=== PATIENT | female | born 1990 | race Caucasian/White ===

== ENCOUNTER 2018-04-13 15:56 | Emergency (ER) | payer BC ==
[~2018-04-13] VITALS: Ht 157.5 cm; Wt 63.0 kg
[~2018-04-13 15:56] MED LIST: ADVAIR 500/501 EA INH; ALBUTEROL SULF8.5 GM INH; CORTISPORIN EAR10 ML LEFT EAR; DOXYCYCLINE HY100 MG PO; LOESTRIN1 EAC1 PO
[2018-04-13] MEDS ORDERED: TETRACAINE HCL 0.5% OPTH SOLN 4 ML BTL ONE (16:07)
[2018-04-13] MEDS ORDERED: FLUORESCEIN SOD(OPTH) 1 MG STRP OP ONE (16:15)
[2018-04-13] MEDS ORDERED: PROPARACAINE HCL 0.5% OP SOLN 15 ML BTL OP ONE (16:15)
[2018-04-13 16:41] VITALS: BP 113/79
== END 2018-04-13 16:55 | disposition home or self-care (01) ==
LOC: ER 15:56
DX: H57.12 Ocular pain, left eye (principal); S05.02XA Injury of conjunctiva and corneal abrasion without foreign body, left eye, initial encounter; R05 Cough; J02.9 Acute pharyngitis, unspecified
CPT/HCPCS: 99283

== ENCOUNTER 2018-09-26 01:21 | Emergency (ER) | payer BC, OTHER ==
[~2018-09-26] VITALS: Ht 157.5 cm; Wt 63.0 kg
--- OUTSIDE RECORDS SUMMARY | 2018-09-26 01:24 | XMS REPORT | Continuity of Care Document ---
Author Author Jeremias sorensen [facility] Interface Address Unknown Phone Unavailable Problems Problem Status Onset Date Classification Date Reported Comments Source Discharge Diagnosis: Cough 10/18/2017 10/21/2017 [facility] Discharge Diagnosis: Acute viral syndrome 10/18/2017 10/21/2017 [facility] 23 WEEKS , WEAKNESS, VOMITING Active 10/18/2017 [facility] Discharge Diagnosis: Rash 08/31/2017 09/03/2017 [facility] 16 WKS PREG;PAIN Active 08/31/2017 [facility] Medications Medication Details Route Status Patient Instructions Ordering Provider Order Date Source {21 (Methylprednisolone 4 MG Oral Tablet [Medrol]) } Pack [Medrol Dosepak] See Instructions, PO, Take by mouth as directed on label., # 1 Pack, 0 Refill(s) Active 10/19/2017 [facility] methylPREDNISolone SODium SUCCinate 125 mg, 2 mL, Route: IVP, Drug form: INJ, ONCE, Dosing Weight 70.909, kg, Priority: STAT, Start date: 10/18/17 19:24:00 CAREER TRANSITION SPECIALIST, Stop date: 10/18/17 19:24:00 CSTNotes: (Same as:Solu-MEDROL, A-Methapred) Inactive 10/19/2017 [facility] Albuterol 0.83 MG/ML Inhalant Solution 2.49 mg, 3 mL, Route: NEB, Drug form: SOLN, ONCE, Dosing Weight 70.909, kg, Priority: STAT, Start date: 10/18/17 16:25:00 CAREER TRANSITION SPECIALIST, Stop date: 10/18/17 16:25:00 CSTNotes: SEE RT DOCUMENTATION (Same as: Proventil) Inactive 10/18/2017 [facility] Saline Flush 0.9% 10 mL, Route: IVP, Drug Form: INJ, Dosing Weight 70.909, kg, PRN, PRN Line Flush, Start date: 10/18/17 16:25:00 CAREER TRANSITION SPECIALIST, Duration: 30 day, Stop date: 11/17/17 16:24:00 CSTNotes: Same as: BD Posiflush Sterile Inactive 10/18/2017 [facility] Sodium Chloride 0.9% (Bolus) IV 1,000 mL, 1000 ml/hr, Infuse Over: 1 hr, Route: IV, 1,000, Drug form: INJ, ONCE, Priority: STAT, Dosing Weight 70.909 kg, Start date: 10/18/17 16:25:00 CAREER TRANSITION SPECIALIST, Stop date: 10/18/17 16:25:00 CAREER TRANSITION SPECIALIST Inactive 10/18/2017 [facility] Clobetasol Propionate 0.5 MG/ML Topical Cream 1 appl, TOP, BID, X 14 day, # 15 gm, 0 Refill(s) Active 08/31/2017 [facility] Diphenhydramine 25 mg, 0.5 mL, Route: IVP, Drug form: INJ, ONCE, Dosing Weight 68.955, kg, Priority: STAT, Start date: 08/31/17 17:24:00 CDT, Stop date: 08/31/17 17:24:00 CDTNotes: (Same as: Benadryl) Inactive 08/31/2017 [facility] Diphenhydramine 25 mg, 0.5 mL, Route: IVP, Drug form: INJ, ONCE, Dosing Weight 68.955, kg, Priority: STAT, Start date: 08/31/17 15:34:00 CDT, Stop date: 08/31/17 15:34:00 CDTNotes: (Same as: Benadryl) Inactive 08/31/2017 [facility] Saline Flush 0.9% 10 mL, Route: IVP, Drug Form: INJ, Dosing Weight 68.955, kg, PRN, PRN Line Flush, Start date: 08/31/17 14:53:00 CDT, Duration: 30 day, Stop date: 09/30/17 13:52:00 CSTNotes: Same as: BD Posiflush Sterile Inactive 08/31/2017 [facility] Sodium Chloride 0.9% (Bolus) IV 1,000 mL, 1,000 ml/hr, Infuse Over: 1 hr, Route: IV, 1,000, Drug form: INJ, ONCE, Priority: STAT, Dosing Weight 68.955 kg, Start date: 08/31/17 14:53:00 CDT, Duration: 1 doses or times, Stop date: 08/31/17 14:53:00 CDT Inactive 08/31/2017 [facility] Allergies, Adverse Reactions, Alerts Substance Category Reaction Severity Reaction type Status Date Reported Comments Source Food Nuts Assertion Drug allergy Active [facility] sulfa drugs Assertion Drug allergy Active [facility] Immunizations Immunization Date Given Site Status Last Updated Comments Source Results Order Name Results Value Reference Range Date Interpretation Comments Source URINE AND STOOL UA Urobilinogen <=1.0 mg/dL 0.1 - 1.0 10/18/2017 [facility] URINE AND STOOL UA Spec Grav 1.017 <=1.030 10/18/2017 [facility] URINE AND STOOL UA Ketones Negative mg/dL Negative mg/dL 10/18/2017 [facility] URINE AND STOOL UA pH 6.5 5.0 - 8.0 10/18/2017 [facility] URINE AND STOOL UA Protein Negative mg/dL Negative mg/dL 10/18/2017 [facility] URINE AND STOOL UA WBC 3 /HPF 0 - 5 10/18/2017 [facility] URINE AND STOOL UA Sq Epi Many /LPF Few /LPF 10/18/2017 [facility] URINE AND STOOL UA Bili Negative *NA* (10/18/17 5:15 PM) Negative 10/18/2017 [facility] URINE AND STOOL UA Mucus Few /LPF None Seen /LPF 10/18/2017 [facility] URINE AND STOOL UA RBC 1 /HPF 0 - 2 10/18/2017 [facility] URINE AND STOOL UA Leuk Est Small *ABN* (10/18/17 5:15 PM) Negative 10/18/2017 [facility] URINE AND STOOL UA Nitrite Negative (10/18/17 5:15 PM) Negative 10/18/2017 [facility] URINE AND STOOL UA Blood Negative (10/18/17 5:15 PM) Negative 10/18/2017 [facility] URINE AND STOOL UA Glucose Negative mg/dL Negative mg/dL 10/18/2017 [facility] URINE AND STOOL UA Turbidity Clear (10/18/17 5:15 PM) Clear 10/18/2017 [facility] URINE AND STOOL UA Color Yellow *NA* (10/18/17 5:15 PM) Yellow 10/18/2017 [facility] CHEM PANEL eGFR 130 mL/min/1.73m2 10/18/2017 Result Comment: The eGFR is calculated using the CKD-EPI formula. In most young, healthy individuals the eGFR will be >90 mL/min/1.73m2. The eGFR declines with age. An eGFR of 60-89 may be normal in some populations, particularly the elderly, for whom the CKD-EPI formula has not been extensively validated. Use of the eGFR is not recommended in the following populations: Individuals with unstable creatinine concentrations, including patients and those with serious co-morbid conditions. Patients with extremes in muscle mass or diet. The data above are obtained from the National Kidney Disease Education Program (NKDEP) which additionally recommends that when the eGFR is used in patients with extremes of body mass index for purposes of drug dosing, the eGFR should be multiplied by the estimated BMI. [facility] CHEM PANEL Creatinine Lvl 0.57 mg/dL 0.50 - 1.40 10/18/2017 [facility] CHEM PANEL Sodium Lvl 138 meq/L 135 - 145 10/18/2017 [facility] CHEM PANEL Potassium Lvl 4.1 meq/L 3.5 - 5.1 10/18/2017 [facility] CHEM PANEL Chloride Lvl 104 meq/L 95 - 109 10/18/2017 [facility] CHEM PANEL CO2 26 meq/L 24 - 32 10/18/2017 [facility] CHEM PANEL Glucose Lvl 87 mg/dL 70 - 99 10/18/2017 [facility] CHEM PANEL BUN 9 mg/dL 7 - 22 10/18/2017 [facility] CHEM PANEL Albumin Lvl 3.0 g/dL 3.5 - 5.0 10/18/2017 [facility] CHEM PANEL Calcium Lvl 8.7 mg/dL 8.5 - 10.5 10/18/2017 [facility] CHEM PANEL Total Protein 7.3 g/dL 6.4 - 8.4 10/18/2017 [facility] CHEM PANEL Bili Total 0.3 mg/dL 0.2 - 1.3 10/18/2017 [facility] CHEM PANEL AST 13 unit/L 0 - 37 10/18/2017 [facility] CHEM PANEL Alk Phos 84 unit/L 39 - 136 10/18/2017 [facility] CHEM PANEL ALT 15 unit/L 0 - 65 10/18/2017 [facility] CHEM PANEL A/G Ratio 0.7 0.7 - 1.6 10/18/2017 [facility] CHEM PANEL B/C Ratio 16 6 - 25 10/18/2017 [facility] CHEM PANEL AGAP 12.1 meq/L 10.0 - 20.0 10/18/2017 [facility] CHEM PANEL Globulin 4.3 g/dL 2.7 - 4.2 10/18/2017 [facility] HEMATOLOGY Hct 31.8 % 36.0 - 48.0 10/18/2017 [facility] HEMATOLOGY MCV 83.2 fL 80.0 - 98.0 10/18/2017 [facility] HEMATOLOGY MCH 27.7 pg 27.0 - 31.0 10/18/2017 [facility] HEMATOLOGY Platelet 290 K/CMM 133 - 450 10/18/2017 [facility] HEMATOLOGY RDW 13.3 % 11.5 - 14.5 10/18/2017 [facility] HEMATOLOGY MCHC 33.3 g/dL 32.0 - 36.0 10/18/2017 [facility] HEMATOLOGY MPV 7.8 fL 7.4 - 10.4 10/18/2017 [facility] HEMATOLOGY Hgb 10.6 g/dL 12.0 - 16.0 10/18/2017 [facility] HEMATOLOGY RBC 3.82 M/CMM 4.20 - 5.40 10/18/2017 [facility] HEMATOLOGY WBC 15.1 K/CMM 3.7 - 10.4 10/18/2017 [facility] HEMATOLOGY Monocytes # 0.9 K/CMM 0.0 - 0.8 10/18/2017 [facility] HEMATOLOGY Eosinophils # 2.1 K/CMM 0.0 - 0.5 10/18/2017 [facility] HEMATOLOGY Lymphocytes # 2.5 K/CMM 1.0 - 5.5 10/18/2017 [facility] HEMATOLOGY Segs 62.8 % 45.0 - 75.0 10/18/2017 [facility] HEMATOLOGY Lymphocytes 16.9 % 20.0 - 40.0 10/18/2017 [facility] HEMATOLOGY Eosinophils 13.8 % 0.0 - 4.0 10/18/2017 [facility] HEMATOLOGY Monocytes 6.2 % 2.0 - 12.0 10/18/2017 [facility] HEMATOLOGY Segs-Bands # 9.5 K/CMM 1.5 - 8.1 10/18/2017 [facility] HEMATOLOGY Basophils 0.3 % 0.0 - 1.0 10/18/2017 [facility] VIRAL - SEROLOGY Influ A Negative (10/18/17 4:34 PM) Negative 10/18/2017 [facility] VIRAL - SEROLOGY Influ B Negative (10/18/17 4:34 PM) Negative 10/18/2017 [facility] Chest 2 views DX Chest 2 views DX Chest 2 views DX CLINICAL HISTORY: - cough/wheezing; preg; shield COMPARISON: none FINDINGS: SUPPORT DEVICES: none LUNGS: Lungs are reasonably well inflated. No consolidation or any significant effusion. No pneumothorax is evident. CARDIOVASCULAR: Cardiac silhouette size is normal. Pulmonary vasculature is within normal limits. MEDIASTINUM/JELANI: Trachea is midline. No contour abnormality is noted. OSSEOUS STRUCTURES: No acute bony abnormality is noted. SOFT TISSUES: No significant soft tissue abnormality is noted. IMPRESSION: No acute abnormality is noted. SL: MELO 10/18/2017 - - Read by: Geoffrey Roldan MD Dictated Date/time: 10/18/17 16:50 Electronically Signed by: Geoffrey Roldan MD 10/18/17 16:51 FINAL REPORT [facility] BLOOD BANK RESULTS ABO/Rh O POS 08/31/2017 [facility] CHEM PANEL eGFR 129 mL/min/1.73m2 08/31/2017 Result Comment: The eGFR is calculated using the CKD-EPI formula. In most young, healthy individuals the eGFR will be >90 mL/min/1.73m2. The eGFR declines with age. An eGFR of 60-89 may be normal in some populations, particularly the elderly, for whom the CKD-EPI formula has not been extensively validated. Use of the eGFR is not recommended in the following populations: Individuals with unstable creatinine concentrations, including patients and those with serious co-morbid conditions. Patients with extremes in muscle mass or diet. The data above are obtained from the National Kidney Disease Education Program (NKDEP) which additionally recommends that when the eGFR is used in patients with extremes of body mass index for purposes of drug dosing, the eGFR should be multiplied by the estimated BMI. [facility] CHEM PANEL Bili Total 0.2 mg/dL 0.2 - 1.3 08/31/2017 [facility] CHEM PANEL Alk Phos 77 unit/L 39 - 136 08/31/2017 [facility] CHEM PANEL CO2 24 meq/L 24 - 32 08/31/2017 [facility] CHEM PANEL Calcium Lvl 9.0 mg/dL 8.5 - 10.5 08/31/2017 [facility] CHEM PANEL Total Protein 7.5 g/dL 6.4 - 8.4 08/31/2017 [facility] CHEM PANEL Albumin Lvl 3.3 g/dL 3.5 - 5.0 08/31/2017 [facility] CHEM PANEL ALT 16 unit/L 0 - 65 08/31/2017 [facility] CHEM PANEL AST 14 unit/L 0 - 37 08/31/2017 [facility] CHEM PANEL Creatinine Lvl 0.57 mg/dL 0.50 - 1.40 08/31/2017 [facility] CHEM PANEL Potassium Lvl 3.6 meq/L 3.5 - 5.1 08/31/2017 [facility] CHEM PANEL Chloride Lvl 104 meq/L 95 - 109 08/31/2017 [facility] CHEM PANEL BUN 11 mg/dL 7 - 22 08/31/2017 [facility] CHEM PANEL Glucose Lvl 80 mg/dL 70 - 99 08/31/2017 [facility] CHEM PANEL Sodium Lvl 134 meq/L 135 - 145 08/31/2017 [facility] CHEM PANEL Globulin 4.2 g/dL 2.7 - 4.2 08/31/2017 [facility] CHEM PANEL B/C Ratio 19 6 - 25 08/31/2017 [facility] CHEM PANEL AGAP 9.6 meq/L 10.0 - 20.0 08/31/2017 [facility] CHEM PANEL A/G Ratio 0.8 0.7 - 1.6 08/31/2017 [facility] [place] [address] mIU/mL 08/31/2017 [facility] HEMATOLOGY Platelet 354 K/CMM 133 - 450 08/31/2017 [facility] HEMATOLOGY RDW 14.3 % 11.5 - 14.5 08/31/2017 [facility] HEMATOLOGY MCHC 33.5 g/dL 32.0 - 36.0 08/31/2017 [facility] HEMATOLOGY Hct 33.9 % 36.0 - 48.0 08/31/2017 [facility] HEMATOLOGY Hgb 11.3 g/dL 12.0 - 16.0 08/31/2017 [facility] HEMATOLOGY MPV 7.6 fL 7.4 - 10.4 08/31/2017 [facility] HEMATOLOGY MCV 81.7 fL 80.0 - 98.0 08/31/2017 [facility] HEMATOLOGY MCH 27.4 pg 27.0 - 31.0 08/31/2017 [facility] HEMATOLOGY RBC 4.14 M/CMM 4.20 - 5.40 08/31/2017 [facility] HEMATOLOGY WBC 11.8 K/CMM 3.7 - 10.4 08/31/2017 [facility] HEMATOLOGY Eosinophils # 0.2 K/CMM 0.0 - 0.5 08/31/2017 [facility] HEMATOLOGY Basophils 0.3 % 0.0 - 1.0 08/31/2017 [facility] HEMATOLOGY Segs-Bands # 7.6 K/CMM 1.5 - 8.1 08/31/2017 [facility] HEMATOLOGY Lymphocytes # 3.2 K/CMM 1.0 - 5.5 08/31/2017 [facility] HEMATOLOGY Monocytes # 0.6 K/CMM 0.0 - 0.8 08/31/2017 [facility] HEMATOLOGY Eosinophils 1.9 % 0.0 - 4.0 08/31/2017 [facility] HEMATOLOGY Lymphocytes 27.2 % 20.0 - 40.0 08/31/2017 [facility] HEMATOLOGY Monocytes 5.5 % 2.0 - 12.0 08/31/2017 [facility] HEMATOLOGY Segs 65.1 % 45.0 - 75.0 08/31/2017 [facility] URINE AND STOOL UA Urobilinogen <=1.0 mg/dL 0.1 - 1.0 08/31/2017 [facility] URINE AND STOOL UA Nitrite Negative (08/31/17 4:03 PM) Negative 08/31/2017 [facility] URINE AND STOOL UA Blood Negative (08/31/17 4:03 PM) Negative 08/31/2017 [facility] URINE AND STOOL UA WBC null 0 - 5 08/31/2017 [facility] URINE AND STOOL UA Sq Epi Moderate /LPF Few /LPF 08/31/2017 [facility] URINE AND STOOL UA Leuk Est Negative (08/31/17 4:03 PM) Negative 08/31/2017 [facility] URINE AND STOOL UA RBC 2 /HPF 0 - 2 08/31/2017 [facility] URINE AND STOOL UA Mucus Few /LPF None Seen /LPF 08/31/2017 [facility] URINE AND STOOL UA Turbidity Clear (08/31/17 4:03 PM) Clear 08/31/2017 [facility] URINE AND STOOL UA Spec Grav 1.019 <=1.030 08/31/2017 [facility] URINE AND STOOL UA Bili Negative *NA* (08/31/17 4:03 PM) Negative 08/31/2017 [facility] URINE AND STOOL UA Color Yellow *NA* (08/31/17 4:03 PM) Yellow 08/31/2017 [facility] URINE AND STOOL UA pH 6.0 5.0 - 8.0 08/31/2017 [facility] URINE AND STOOL UA Protein Negative mg/dL Negative mg/dL 08/31/2017 [facility] URINE AND STOOL UA Ketones Negative mg/dL Negative mg/dL 08/31/2017 [facility] URINE AND STOOL UA Glucose Negative mg/dL Negative mg/dL 08/31/2017 [facility] complete US complete US Study: complete US 08/31/2017 2:53 PM CDT Ordering Physician: Willy Nicole Clinical Indication: Vaginal Bleeding - 16 weeks; lower abd pain. Comparison: None TECHNIQUE: Grayscale, color flow Doppler and duplex Doppler ultrasound with spectral waveform analysis of the pelvis is performed. Please see computer-generated obstetrical ultrasound report for complete details. A single living intrauterine gestation is present in variable position, with normal heart rate of 155 bpm. The placenta is posterior, grade 1, with no evidence for previa or abruption. Amniotic fluid index is normal, measuring 11.4 cm. The cervix is competent, measuring 3.8 cm in length. measurements and ratios are within normal limits. Gestational age by LMP of 05/09/2017 is 16 weeks 2 days, with an MADDIE of 02/13/2018. Composite gestational age by ultrasound is 16 weeks 1 day, with an MADDIE of 02/14/2018. Estimated weight is 141 g, placing the gestation at the 23rd weight percentile by LMP. anatomy: Normal four-chamber heart identified, with normal heart rate of 155 bpm. Normal situs is seen. stomach, bladder, three-vessel cord and cord insertion are normal in appearance. Cerebellar hemispheres and orbits are grossly normal in appearance. IMPRESSION: A single living intrauterine gestation is present in variable position, with normal heart rate of 155 bpm. Assessment of anatomy is limited. Gestational age by LMP of 05/09/2017 is 16 weeks 2 days, with an MADDIE of 02/13/2018. Composite gestational age by ultrasound is 16 weeks 1 day, with an MADDIE of 02/14/2018. Estimated weight is 141 g, placing the gestation at the 23rd weight percentile by LMP. The placenta is posterior, grade 1, with no evidence for previa or abruption. CARMEN is normal and the cervix is competent. SL: [id number] 08/31/2017 - - Read by: Masha Velez MD Dictated Date/time: 08/31/17 17:32 Electronically Signed by: Masha Velez MD 08/31/17 17:36 FINAL REPORT [facility] Vital Signs Vital Sign Value Date Comments Source Respitory Rate 20 10/19/2017 [facility] Systolic (mm Hg) 110 10/19/2017 [facility] Diastolic (mm Hg) 79 10/19/2017 [facility] Temperature Oral (F) 98.3 F 10/19/2017 [facility] Systolic (mm Hg) 108 10/19/2017 [facility] Diastolic (mm Hg) 65 10/19/2017 [facility] Respitory Rate 16 10/19/2017 [facility] Systolic (mm Hg) 102 10/19/2017 [facility] Diastolic (mm Hg) 62 10/19/2017 [facility] Respitory Rate 18 10/19/2017 [facility] Temperature Oral (F) 97.8 F 10/19/2017 [facility] Weight 70.909 10/18/2017 [facility] Height 157.48 cm 10/18/2017 [facility] BMI Calculated 28.59 10/18/2017 [facility] Heart Rate 104 10/18/2017 [facility] Systolic (mm Hg) 118 08/31/2017 [facility] Diastolic (mm Hg) 80 08/31/2017 [facility] Temperature Oral (F) 98.3 F 08/31/2017 [facility] Heart Rate 90 08/31/2017 [facility] Respitory Rate 16 08/31/2017 [facility] Height 157.48 cm 08/31/2017 [facility] Weight 68.955 08/31/2017 [facility] BMI Calculated 27.8 08/31/2017 [facility] Encounters Location Location Details Encounter Type Encounter Number Reason For Visit Attending Provider ADM Date DC Date Status Source [facility] Emergency [id number] Willy Alegre 08/31/2017 08/31/2017 [facility] Emergency [id number] Moira Stewart 10/18/2017 10/19/2017 [facility] Procedures Procedure Code Date Perfomer Comments Source
--- OUTSIDE RECORDS SUMMARY | 2018-09-26 01:25 | XMS REPORT | Summary of Care ---
Author Author [facility] Organization [facility] Address Unknown Phone Unavailable Encounter AYAZ Jones(JERMAINE) [id number] Date(s): 08/31/17 - 08/31/17 [facility] [address] [place] [id number] Discharge Diagnosis: Rash Discharge Disposition: Home or Self Care Attending Physician: Willy Alegre MD Vital Signs Most recent to 1 oldest [Reference Range]: Height 157.48 cm (08/31/17 2:49 PM) Temperature Oral 98.3 DegF [96.4-99.1 DegF] (08/31/17 2:49 PM) Blood Pressure 118/80 mmHg [90-140/60-90 mmHg] (08/31/17 2:49 PM) Respiratory Rate 16 BRMIN [14-20 BRMIN] (08/31/17 2:49 PM) Peripheral Pulse 90 bpm Rate [60-100 bpm] (08/31/17 2:49 PM) Weight 68.955 kg (08/31/17 2:49 PM) Body Mass Index 27.8 m2 (08/31/17 2:49 PM) Problem List No data available for this section Allergies, Adverse Reactions, Alerts Substance Reaction Severity Status Food Nuts Active sulfa drugs Active Medications clobetasol topical 0.05% cream 1 appl, TOP, BID, X 14 day, # 15 gm, 0 Refill(s) Start Date: 08/31/17 Stop Date: 09/14/17 Status: Ordered diphenhydrAMINE 25 mg, 0.5 mL, Route: IVP, Drug form: INJ, ONCE, Dosing Weight 68.955, kg, Prior ity: STAT, Start date: 08/31/17 15:34:00 CDT, Stop date: 08/31/17 15:34:00 CDT Notes: (Same as: Benadryl) Start Date: 08/31/17 Stop Date: 08/31/17 Status: Completed diphenhydrAMINE 25 mg, 0.5 mL, Route: IVP, Drug form: INJ, ONCE, Dosing Weight 68.955, kg, Prior ity: STAT, Start date: 08/31/17 17:24:00 CDT, Stop date: 08/31/17 17:24:00 CDT Notes: (Same as: Benadryl) Start Date: 08/31/17 Stop Date: 08/31/17 Status: Completed Saline Flush 0.9% 10 mL, Route: IVP, Drug Form: INJ, Dosing Weight 68.955, kg, PRN, PRN Line Flush , Start date: 08/31/17 14:53:00 CDT, Duration: 30 day, Stop date: 09/30/17 13:52 :00 PUBLISHING SYSTEMS ANALYST Notes: Same as: BD Posiflush Sterile Start Date: 08/31/17 Stop Date: 08/31/17 Status: Discontinued Sodium Chloride 0.9% (Bolus) IV 1,000 mL, 1,000 ml/hr, Infuse Over: 1 hr, Route: IV, 1,000, Drug form: INJ, ONCE , Priority: STAT, Dosing Weight 68.955 kg, Start date: 08/31/17 14:53:00 CDT, Du ration: 1 doses or times, Stop date: 08/31/17 14:53:00 CDT Start Date: 08/31/17 Stop Date: 08/31/17 Status: Completed Results BLOOD BANK RESULTS Most recent to 1 oldest [Reference Range]: ABO/Rh O POS *Unknown* (08/31/17 4:03 PM) ELECTROLYTES Most recent to 1 oldest [Reference Range]: Sodium Lvl [135-145 134 mEq/L mEq/L] *LOW* (08/31/17 4:03 PM) Potassium Lvl 3.6 mEq/L [3.5-5.1 mEq/L] (08/31/17 4:03 PM) Chloride Lvl [95-109 104 mEq/L mEq/L] (08/31/17 4:03 PM) CO2 [24-32 mEq/L] 24 mEq/L (08/31/17 4:03 PM) AGAP [10.0-20.0 9.6 mEq/L mEq/L] *LOW* (08/31/17 4:03 PM) CHEM PANEL Most recent to 1 oldest [Reference Range]: Creatinine Lvl 0.57 mg/dL [0.50-1.40 mg/dL] (08/31/17 4:03 PM) eGFR 129 mL/min/1.73m2 1 *NA* (08/31/17:03 PM) BUN [7-22 mg/dL] 11 mg/dL (08/31/17 4:03 PM) B/C Ratio [6-25] 19 (08/31/17 4:03 PM) Glucose Lvl [70-99 80 mg/dL mg/dL] (08/31/17 4:03 PM) Total Protein 7.5 g/dL [6.4-8.4 g/dL] (08/31/17 4:03 PM) Albumin Lvl [3.5-5.0 3.3 g/dL g/dL] *LOW* (08/31/17 4:03 PM) Globulin [2.7-4.2 4.2 g/dL g/dL] (08/31/17 4:03 PM) A/G Ratio [0.7-1.6] 0.8 (08/31/17 4:03 PM) Calcium Lvl 9.0 mg/dL [8.5-10.5 mg/dL] (08/31/17 4:03 PM) ALT [0-65 unit/L] 16 unit/L (08/31/17 4:03 PM) AST [0-37 unit/L] 14 unit/L (08/31/17 4:03 PM) Alk Phos [39-136 77 unit/L unit/L] (08/31/17 4:03 PM) Bili Total [0.2-1.3 0.2 mg/dL mg/dL] (08/31/17 4:03 PM) 1Result Comment: The eGFR is calculated using the [...] from the National Kidney Disease Education Program ( NKDEP) which additionally recommends that when the eGFR is used in patients with extremes of body mass index for purposes of drug dosing, the eGFR should be mul tiplied by the estimated BMI. ENDOCRINOLOGY Most recent to 1 oldest [Reference Range]: [place] 35357 mIU/mL *NA* (08/31/17 4:03 PM) URINE AND STOOL Most recent to 1 oldest [Reference Range]: UA Turbidity [Clear] Clear (08/31/17 4:03 PM) UA Color [Yellow] Yellow *NA* (08/31/17 4:03 PM) UA pH [5.0-8.0] 6.0 (08/31/17 4:03 PM) UA Spec Grav 1.019 [<=1.030] (08/31/17 4:03 PM) UA Glucose [Negative Negative mg/dL mg/dL] *NA* (08/31/17 4:03 PM) UA Blood [Negative] Negative (08/31/17 4:03 PM) UA Ketones [Negative Negative mg/dL mg/dL] *NA* (08/31/17 4:03 PM) UA Protein [Negative Negative mg/dL mg/dL] (08/31/17 4:03 PM) UA Urobilinogen <=1.0 mg/dL [0.1-1.0 mg/dL] *NA* (08/31/17 4:03 PM) UA Bili [Negative] Negative *NA* (08/31/17 4:03 PM) UA Leuk Est Negative [Negative] (08/31/17 4:03 PM) UA Nitrite Negative [Negative] (08/31/17 4:03 PM) UA WBC [0-5 /HPF] <1 /HPF (08/31/17 4:03 PM) UA RBC [0-2 /HPF] 2 /HPF (08/31/17 4:03 PM) UA Sq Epi [Few /LPF] Moderate /LPF *ABN* (08/31/17 4:03 PM) UA Mucus [None Seen Few /LPF /LPF] *NA* (08/31/17 4:03 PM) HEMATOLOGY Most recent to 1 oldest [Reference Range]: WBC [3.7-10.4 K/CMM] 11.8 K/CMM *HI* (08/31/17 4:03 PM) RBC [4.20-5.40 4.14 M/CMM M/CMM] *LOW* (08/31/17 4:03 PM) Hgb [12.0-16.0 g/dL] 11.3 g/dL *LOW* (08/31/17 4:03 PM) Hct [36.0-48.0 %] 33.9 % *LOW* (08/31/17 4:03 PM) MCV [80.0-98.0 fL] 81.7 fL (08/31/17 4:03 PM) MCH [27.0-31.0 pg] 27.4 pg (08/31/17 4:03 PM) MCHC [32.0-36.0 33.5 g/dL g/dL] (08/31/17 4:03 PM) RDW [11.5-14.5 %] 14.3 % (08/31/17 4:03 PM) Platelet [133-450 354 K/CMM K/CMM] (08/31/17 4:03 PM) MPV [7.4-10.4 fL] 7.6 fL (08/31/17 4:03 PM) Segs [45.0-75.0 %] 65.1 % (08/31/17 4:03 PM) Lymphocytes 27.2 % [20.0-40.0 %] (08/31/17 4:03 PM) Monocytes [2.0-12.0 5.5 % %] (08/31/17 4:03 PM) Eosinophils [0.0-4.0 1.9 % %] (08/31/17 4:03 PM) Basophils [0.0-1.0 0.3 % %] (08/31/17 4:03 PM) Segs-Bands # 7.6 K/CMM [1.5-8.1 K/CMM] (08/31/17 4:03 PM) Lymphocytes # 3.2 K/CMM [1.0-5.5 K/CMM] (08/31/17 4:03 PM) Monocytes # [0.0-0.8 0.6 K/CMM K/CMM] (08/31/17 4:03 PM) Eosinophils # 0.2 K/CMM [0.0-0.5 K/CMM] (08/31/17 4:03 PM) Immunizations No data available for this section Procedures No data available for this section Social History Social History Type Response Smoking Status Never smoker; Type: Cigarettes; Ready to change: No; Concerns about tobacco use in household: No; Exposure to Tobacco Smoke None; Cigarette Smoking Last 365 Days Yes; Reg Smoking Cessation Counseling No Assessment and Plan No data available for this section
--- OUTSIDE RECORDS SUMMARY | 2018-09-26 01:25 | XMS REPORT | Summary of Care ---
Author Author [facility] Organization [facility] Address Unknown Phone Unavailable Encounter AYAZ Jones(JERMAINE) [id number] Date(s): 10/18/17 - 10/18/[address] [address]- Discharge Diagnosis: Cough Discharge Diagnosis: Acute viral syndrome Discharge Disposition: Home or Self Care Attending Physician: Moira Stewart MD Vital Signs 1 2 3 Most recent to oldest [Reference Range]: 157.48 cm (10/18/17 4:13 PM) Height 98.3 DegF (10/18/17 8:31 PM) 97.8 DegF (10/18/17 6:44 PM) Temperature Oral [96.4-99.1 DegF] 110/79 mmHg (10/18/17 8:31 PM) 108/65 mmHg (10/18/17 8:00 PM) 102/62 mmHg (10/18/17 7:30 PM) Blood Pressure [90-140/60-90 mmHg] 20 BRMIN (10/18/17 8:31 PM) 16 BRMIN (10/18/17 8:00 PM) 18 BRMIN (10/18/17 7:30 PM) Respiratory Rate [14-20 BRMIN] 104 bpm *HI* (10/18/17 4:13 PM) Peripheral Pulse Rate [60-100 bpm] 70.909 kg (10/18/17 4:13 PM) Weight 28.59 m2 (10/18/17 4:13 PM) Body Mass Index Problem List No data available for this section Allergies, Adverse Reactions, Alerts Substance Reaction Severity Status sulfa drugs Active Food Nuts Active Medications albuterol 0.083% inhalation solution 2.49 mg, 3 mL, Route: NEB, Drug form: SOLN, ONCE, Dosing Weight 70.909, kg, Prio rity: STAT, Start date: 10/18/17 16:25:00 [employer], Stop date: 10/18/17 16:25:00 [employer] Notes: SEE RT DOCUMENTATION (Same as: Proventil) Start Date: 10/18/17 Stop Date: 10/18/17 Status: Completed Medrol Dosepak 4 mg oral tablet See Instructions, PO, Take by mouth as directed on label., # 1 Pack, 0 Refill(s) Start Date: 10/18/17 Stop Date: 10/24/17 Status: Ordered methylPREDNISolone SODium SUCCinate 125 mg, 2 mL, Route: IVP, Drug form: INJ, ONCE, Dosing Weight 70.909, kg, Priori ty: STAT, Start date: 10/18/17 19:24:00 [employer], Stop date: 10/18/17 19:24:00 [employer] Notes: (Same as:Solu-MEDROL, A-Methapred) Start Date: 10/18/17 Stop Date: 10/18/17 Status: Completed Saline Flush 0.9% 10 mL, Route: IVP, Drug Form: INJ, Dosing Weight 70.909, kg, PRN, PRN Line Flush , Start date: 10/18/17 16:25:00 [employer], Duration: 30 day, Stop date: 11/17/17 16:24 :00 [employer] Notes: Same as: BD Posiflush Sterile Start Date: 10/18/17 Stop Date: 10/18/17 Status: Discontinued Sodium Chloride 0.9% (Bolus) IV 1,000 mL, 1000 ml/hr, Infuse Over: 1 hr, Route: IV, 1,000, Drug form: INJ, ONCE, Priority: STAT, Dosing Weight 70.909 kg, Start date: 10/18/17 16:25:00 [employer], Stop date: 10/18/17 16:25:00 [employer] Start Date: 10/18/17 Stop Date: 10/18/17 Status: Completed Results ELECTROLYTES Most recent to 1 oldest [Reference Range]: Sodium Lvl [135-145 138 mEq/L mEq/L] (10/18/17 4:34 PM) Potassium Lvl 4.1 mEq/L [3.5-5.1 mEq/L] (10/18/17 4:34 PM) Chloride Lvl [95-109 104 mEq/L mEq/L] (10/18/17 4:34 PM) CO2 [24-32 mEq/L] 26 mEq/L (10/18/17 4:34 PM) AGAP [10.0-20.0 12.1 mEq/L mEq/L] (10/18/17 4:34 PM) CHEM PANEL Most recent to 1 oldest [Reference Range]: Creatinine Lvl 0.57 mg/dL [0.50-1.40 mg/dL] (10/18/17 4:34 PM) eGFR 130 mL/min/1.73m2 1 *NA* (10/18/17 4:34 PM) BUN [7-22 mg/dL] 9 mg/dL (10/18/17 4:34 PM) B/C Ratio [6-25] 16 (10/18/17 4:34 PM) Glucose Lvl [70-99 87 mg/dL mg/dL] (10/18/17 4:34 PM) Total Protein 7.3 g/dL [6.4-8.4 g/dL] (10/18/17 4:34 PM) Albumin Lvl [3.5-5.0 3.0 g/dL g/dL] *LOW* (10/18/17 4:34 PM) Globulin [2.7-4.2 4.3 g/dL g/dL] *HI* (10/18/17 4:34 PM) A/G Ratio [0.7-1.6] 0.7 (10/18/17 4:34 PM) Calcium Lvl 8.7 mg/dL [8.5-10.5 mg/dL] (10/18/17 4:34 PM) ALT [0-65 unit/L] 15 unit/L (10/18/17 4:34 PM) AST [0-37 unit/L] 13 unit/L (10/18/17 4:34 PM) Alk Phos [39-136 84 unit/L unit/L] (10/18/17 4:34 PM) Bili Total [0.2-1.3 0.3 mg/dL mg/dL] (10/18/17 4:34 PM) 1Result Comment: The eGFR is calculated [...] be mul tiplied by the estimated BMI. URINE AND STOOL Most recent to 1 oldest [Reference Range]: UA Turbidity [Clear] Clear (10/18/17 5:15 PM) UA Color [Yellow] Yellow *NA* (10/18/17 5:15 PM) UA pH [5.0-8.0] 6.5 (10/18/17 5:15 PM) UA Spec Grav 1.017 [<=1.030] (10/18/17 5:15 PM) UA Glucose [Negative Negative mg/dL mg/dL] *NA* (10/18/17 5:15 PM) UA Blood [Negative] Negative (10/18/17 5:15 PM) UA Ketones [Negative Negative mg/dL mg/dL] *NA* (10/18/17 5:15 PM) UA Protein [Negative Negative mg/dL mg/dL] (10/18/17 5:15 PM) UA Urobilinogen <=1.0 mg/dL [0.1-1.0 mg/dL] *NA* (10/18/17 5:15 PM) UA Bili [Negative] Negative *NA* (10/18/17 5:15 PM) UA Leuk Est Small [Negative] *ABN* (10/18/17 5:15 PM) UA Nitrite Negative [Negative] (10/18/17 5:15 PM) UA WBC [0-5 /HPF] 3 /HPF (10/18/17 5:15 PM) UA RBC [0-2 /HPF] 1 /HPF (10/18/17 5:15 PM) UA Sq Epi [Few /LPF] Many /LPF *ABN* (10/18/17 5:15 PM) UA Mucus [None Seen Few /LPF /LPF] *NA* (10/18/17 5:15 PM) HEMATOLOGY Most recent to 1 oldest [Reference Range]: WBC [3.7-10.4 K/CMM] 15.1 K/CMM *HI* (10/18/17 4:34 PM) RBC [4.20-5.40 3.82 M/CMM M/CMM] *LOW* (10/18/17 4:34 PM) Hgb [12.0-16.0 g/dL] 10.6 g/dL *LOW* (10/18/17 4:34 PM) Hct [36.0-48.0 %] 31.8 % *LOW* (10/18/17 4:34 PM) MCV [80.0-98.0 fL] 83.2 fL (10/18/17 4:34 PM) MCH [27.0-31.0 pg] 27.7 pg (10/18/17 4:34 PM) MCHC [32.0-36.0 33.3 g/dL g/dL] (10/18/17 4:34 PM) RDW [11.5-14.5 %] 13.3 % (10/18/17 4:34 PM) Platelet [133-450 290 K/CMM K/CMM] (10/18/17 4:34 PM) MPV [7.4-10.4 fL] 7.8 fL (10/18/17 4:34 PM) Segs [45.0-75.0 %] 62.8 % (10/18/17 4:34 PM) Lymphocytes 16.9 % [20.0-40.0 %] *LOW* (10/18/17 4:34 PM) Monocytes [2.0-12.0 6.2 % %] (10/18/17 4:34 PM) Eosinophils [0.0-4.0 13.8 % %] *HI* (10/18/17 4:34 PM) Basophils [0.0-1.0 0.3 % %] (10/18/17 4:34 PM) Segs-Bands # 9.5 K/CMM [1.5-8.1 K/CMM] *HI* (10/18/17 4:34 PM) Lymphocytes # 2.5 K/CMM [1.0-5.5 K/CMM] (10/18/17 4:34 PM) Monocytes # [0.0-0.8 0.9 K/CMM K/CMM] *HI* (10/18/17 4:34 PM) Eosinophils # 2.1 K/CMM [0.0-0.5 K/CMM] *HI* (10/18/17 4:34 PM) VIRAL - SEROLOGY Most recent to 1 oldest [Reference Range]: Influ A [Negative] Negative (10/18/17 4:34 PM) Influ B [Negative] Negative (10/18/17 4:34 PM) Immunizations No data available for this [...]
[2018-09-26] MEDS ORDERED: KEFLEX500 MG PO (02:02)
== END 2018-09-26 02:50 | disposition home or self-care (01) ==
LOC: ER 01:21
DX: L03.012 Cellulitis of left finger (principal); L03.011 Cellulitis of right finger; B00.1 Herpesviral vesicular dermatitis; L02.414 Cutaneous abscess of left upper limb
CPT/HCPCS: 99283

== ENCOUNTER 2018-09-27 01:10 | Emergency (ER) | payer BC, OTHER ==
[~2018-09-27] VITALS: Ht 157.5 cm; Wt 63.0 kg
[~2018-09-27 01:10] MED LIST changes: +KEFLEX500 MG PO
[2018-09-27] MEDS ORDERED: LIDOCAINE/PRILOCAINE 2.5-2.5% KIT TOP ONE (02:00)
[2018-09-27] MEDS ORDERED: HYDROCODONE/APAP 10MG-325MG TAB ONE (02:50)
[2018-09-27] MEDS ORDERED: HYDROCODONE/APAP 10MG-325MG TAB PO ONE (03:00)
== END 2018-09-27 03:22 | disposition home or self-care (01) ==
LOC: ER 01:10
DX: L03.012 Cellulitis of left finger (principal)
CPT/HCPCS: 99282

== ENCOUNTER 2019-04-30 11:46 | Emergency (ER) | payer OTHER ==
[~2019-04-30] VITALS: Ht 157.5 cm; Wt 68.0 kg
--- OUTSIDE RECORDS SUMMARY | 2019-04-30 11:49 | XMS REPORT | Continuity of Care Document ---
Author Author [facility] Address Unknown Phone Unavailable Problems Problem Status Onset Date Classification Date Reported Comments Source Discharge Diagnosis: Cough 10/18/2017 10/21/2017 [facility] Discharge Diagnosis: Acute viral syndrome 10/18/2017 10/21/2017 [facility] 23 WEEKS , WEAKNESS, VOMITING Active 10/18/2017 [facility] Discharge Diagnosis: Rash 08/31/2017 09/03/2017 [facility] 16 WKS PREG;PAIN Active 08/31/2017 [facility] Chest wall pain Active Problem 04/13/2018 [facility] Medications Medication Details Route Status Patient Instructions Ordering Provider Order Date Source {21 (Methylprednisolone 4 MG Oral Tablet [Medrol]) } Pack [Medrol Dosepak] See Instructions, PO, Take by mouth as directed on label., # 1 Pack, 0 Refill(s) Active 10/19/2017 [facility] methylPREDNISolone SODium SUCCinate 125 mg, 2 mL, Route: IVP, Drug form: INJ, ONCE, Dosing Weight 70.909, kg, Priority: STAT, Start date: 10/18/17 19:24:00 SAL[employer]ERSON [employer], Stop date: 10/18/17 19:24:00 CSTNotes: (Same as:Solu-MEDROL, A-Methapred) Inactive 10/19/2017 [facility] Albuterol 0.83 MG/ML Inhalant Solution 2.49 mg, 3 mL, Route: NEB, Drug form: SOLN, ONCE, Dosing Weight 70.909, kg, Priority: STAT, Start date: 10/18/17 16:25:00 [employer], Stop date: 10/18/17 16:25:00 CSTNotes: SEE RT DOCUMENTATION (Same as: Proventil) Inactive 10/18/2017 [facility] Saline Flush 0.9% 10 mL, Route: IVP, Drug Form: INJ, Dosing Weight 70.909, kg, PRN, PRN Line Flush, Start date: 10/18/17 16:25:00 [employer], Duration: 30 day, Stop date: 11/17/17 16:24:00 CSTNotes: Same as: BD Posiflush Sterile Inactive 10/18/2017 [facility] Sodium Chloride 0.9% (Bolus) IV 1,000 mL, 1000 ml/hr, Infuse Over: 1 hr, Route: IV, 1,000, Drug form: INJ, ONCE, Priority: STAT, Dosing Weight 70.909 kg, Start date: 10/18/17 16:25:00 [employer], Stop date: 10/18/17 16:25:00 [employer] Inactive 10/18/2017 [facility] Clobetasol Propionate 0.5 MG/ML Topical Cream 1 appl, TOP, BID, X 14 day, # 15 gm, 0 Refill(s) Active 08/31/2017 [facility] Diphenhydramine 25 mg, 0.5 mL, Route: IVP, Drug form: INJ, ONCE, Dosing Weight 68.955, kg, Priority: STAT, Start date: 08/31/17 17:24:00 CDT, Stop date: 08/31/17 17:24:00 CDTNotes: (Same as: Benadryl) Inactive 08/31/2017 [facility] Diphenhydramine 25 mg, 0.5 mL, Route: IVP, Drug form: INJ, ONCE, Dosing Weight 68.955, kg, Priority: STAT, Start date: 08/31/17 15:34:00 CDT, Stop date: 08/31/17 15:34:00 CDTNotes: (Same as: Benadryl) Inactive 08/31/2017 [facility] Saline Flush 0.9% 10 mL, Route: IVP, Drug Form: INJ, Dosing Weight 68.955, kg, PRN, PRN Line Flush, Start date: 08/31/17 14:53:00 CDT, Duration: 30 day, Stop date: 09/30/17 13:52:00 CSTNotes: Same as: BD Posiflush Sterile Inactive 08/31/2017 [facility] Sodium Chloride 0.9% (Bolus) IV 1,000 mL, 1,000 ml/hr, Infuse Over: 1 hr, Route: IV, 1,000, Drug form: INJ, ONCE, Priority: STAT, Dosing Weight 68.955 kg, Start date: 08/31/17 14:53:00 CDT, Duration: 1 doses or times, Stop date: 08/31/17 14:53:00 CDT Inactive 08/31/2017 [facility] Doxycycline Hyclate 100 Mg Capsule, 100 Mg Oral Twice A Day Active 10/12/2016 [facility] Neomycin/Polymyxin B Sulf/Hc (Cortisporin Ear Solution) 10 Ml Solution, 4 Drop Left Ear Four Times Daily Active 10/12/2016 [facility] Salmeterol Xinafoate/Fluticasone (Advair 500/50*) 1 Ea Aerp, 1 Puff Inhalation Active 10/12/2016 [facility] Norethindrone A-E Estradiol (Loestrin) 1 Each Tablet, 1 Tab Oral Daily Active 12/25/2014 [facility] Albuterol Sulfate (Albuterol Sulfate Hfa) 8.5 Gm Hfa.aer.ad Every 4 Hours as needed for Shortness Of Breath Active [facility] Allergies, Adverse Reactions, Alerts Substance Category Reaction Severity Reaction type Status Date Reported Comments Source Sulfa (Sulfonamide Antibiotics) Unknown Allergy to Substance Active 10/12/2016 [facility] NUT Unknown Allergy to Substance Active 10/12/2016 [facility] PEANUTS Unknown Allergy to Substance Active 10/12/2016 [facility] Food Nuts Assertion Drug allergy Active [facility] sulfa drugs Assertion Drug allergy Active [facility] Immunizations Immunization Date Given Site Status Last Updated Comments Source Results Order Name Results Value Reference Range Date Interpretation Comments Source URINE AND STOOL UA Urobilinogen <=1.0 mg/dL 0.1 - 1.0 10/18/2017 [facility] URINE AND STOOL UA Spec Grav 1.017 <=1.030 10/18/2017 [facility] URINE AND STOOL UA Ketones Negative mg/dL Negative mg/dL 10/18/2017 [facility] URINE AND STOOL UA pH 6.5 5.0 - 8.0 10/18/2017 [facility] URINE AND STOOL UA Protein Negative mg/dL Negative mg/dL 10/18/2017 [facility] URINE AND STOOL UA WBC 3 /HPF 0 - 5 10/18/2017 [facility] URINE AND STOOL UA Sq Epi Many /LPF Few /LPF 10/18/2017 [facility] URINE AND STOOL UA Bili Negative *NA* (10/18/17 5:15 PM) Negative 10/18/2017 [facility] URINE AND STOOL UA Mucus Few /LPF None Seen /LPF 10/18/2017 [facility] URINE AND STOOL UA RBC 1 /HPF 0 - 2 10/18/2017 [facility] URINE AND STOOL UA Leuk Est Small *ABN* (10/18/17 5:15 PM) Negative 10/18/2017 [facility] URINE AND STOOL UA Nitrite Negative (10/18/17 5:15 PM) Negative 10/18/2017 [facility] URINE AND STOOL UA Blood Negative (10/18/17 5:15 PM) Negative 10/18/2017 [facility] URINE AND STOOL UA Glucose Negative mg/dL Negative mg/dL 10/18/2017 [facility] URINE AND STOOL UA Turbidity Clear (10/18/17 5:15 PM) Clear 10/18/2017 [facility] URINE AND STOOL UA Color Yellow *NA* (10/18/17 5:15 PM) Yellow 10/18/2017 [facility] PANEL eGFR 130 mL/min/1.73m2 10/18/2017 Result Comment: [...] should be multiplied by the estimated [facility] Creatinine Lvl 0.57 mg/dL 0.50 - 1.40 10/18/2017 [facility] CHEM PANEL Sodium Lvl 138 meq/L 135 - 145 10/18/2017 [facility] CHEM PANEL Potassium Lvl 4.1 meq/L 3.5 - 5.1 10/18/2017 [facility] CHEM PANEL Chloride Lvl 104 meq/L 95 - 109 10/18/2017 [facility] CHEM PANEL CO2 26 meq/L 24 - 32 10/18/2017 [facility] CHEM PANEL Glucose Lvl 87 mg/dL 70 - 99 10/18/2017 [facility] CHEM PANEL BUN 9 mg/dL 7 - 22 10/18/2017 [facility] CHEM PANEL Albumin Lvl 3.0 g/dL 3.5 - 5.0 10/18/2017 [facility] CHEM PANEL Calcium Lvl 8.7 mg/dL 8.5 - 10.5 10/18/2017 [facility] CHEM PANEL Total Protein 7.3 g/dL 6.4 - 8.4 10/18/2017 [facility] CHEM PANEL Bili Total 0.3 mg/dL 0.2 - 1.3 10/18/2017 [facility] CHEM PANEL AST 13 unit/L 0 - 37 10/18/2017 [facility] CHEM PANEL Alk Phos 84 unit/L 39 - 136 10/18/2017 [facility] CHEM PANEL ALT 15 unit/L 0 - 65 10/18/2017 [facility] CHEM PANEL A/G Ratio 0.7 0.7 - 1.6 10/18/2017 [facility] CHEM PANEL B/C Ratio 16 6 - 25 10/18/2017 [facility] CHEM PANEL AGAP 12.1 meq/L 10.0 - 20.0 10/18/2017 [facility] CHEM PANEL Globulin 4.3 g/dL 2.7 - 4.2 10/18/2017 [facility] HEMATOLOGY Hct 31.8 % 36.0 - 48.0 10/18/2017 [facility] HEMATOLOGY MCV 83.2 fL 80.0 - 98.0 10/18/2017 [facility] HEMATOLOGY MCH 27.7 pg 27.0 - 31.0 10/18/2017 [facility] HEMATOLOGY Platelet 290 K/CMM 133 - 450 10/18/2017 [facility] HEMATOLOGY RDW 13.3 % 11.5 - 14.5 10/18/2017 [facility] HEMATOLOGY MCHC 33.3 g/dL 32.0 - 36.0 10/18/2017 [facility] HEMATOLOGY MPV 7.8 fL 7.4 - 10.4 10/18/2017 [facility] HEMATOLOGY Hgb 10.6 g/dL 12.0 - 16.0 10/18/2017 [facility] HEMATOLOGY RBC 3.82 M/CMM 4.20 - 5.40 10/18/2017 [facility] HEMATOLOGY WBC 15.1 K/CMM 3.7 - 10.4 10/18/2017 [facility] HEMATOLOGY Monocytes # 0.9 K/CMM 0.0 - 0.8 10/18/2017 [facility] HEMATOLOGY Eosinophils # 2.1 K/CMM 0.0 - 0.5 10/18/2017 [facility] HEMATOLOGY Lymphocytes # 2.5 K/CMM 1.0 - 5.5 10/18/2017 [facility] HEMATOLOGY Segs 62.8 % 45.0 - 75.0 10/18/2017 [facility] HEMATOLOGY Lymphocytes 16.9 % 20.0 - 40.0 10/18/2017 [facility] HEMATOLOGY Eosinophils 13.8 % 0.0 - 4.0 10/18/2017 [facility] HEMATOLOGY Monocytes 6.2 % 2.0 - 12.0 10/18/2017 [facility] HEMATOLOGY Segs-Bands # 9.5 K/CMM 1.5 - 8.1 10/18/2017 [facility] HEMATOLOGY Basophils 0.3 % 0.0 - 1.0 10/18/2017 [facility] VIRAL - SEROLOGY Influ A Negative (10/18/17 4:34 PM) Negative 10/18/2017 [facility] VIRAL - SEROLOGY Influ B Negative (10/18/17 4:34 PM) Negative 10/18/2017 [facility] Chest 2 views DX Chest 2 views [...] IMPRESSION: No acute abnormality is noted. SL: [id number] 10/18/2017 - - Read by: Geoffrey Roldan MD Dictated Date/time: 10/18/17 16:50 Electronically Signed by: Geoffrey Roldan MD 10/18/17 16:51 FINAL REPORT [facility] BLOOD BANK RESULTS ABO/Rh O POS 08/31/2017 [facility] CHEM PANEL eGFR 129 mL/min/1.73m2 08/31/2017 Result [...] should be multiplied by the estimated BMI. [facility] CHEM PANEL Bili Total 0.2 mg/dL 0.2 - 1.3 08/31/2017 [facility] CHEM PANEL Alk Phos 77 unit/L 39 - 136 08/31/2017 [facility] CHEM PANEL CO2 24 meq/L 24 - 32 08/31/2017 [facility] CHEM PANEL Calcium Lvl 9.0 mg/dL 8.5 - 10.5 08/31/2017 [facility] CHEM PANEL Total Protein 7.5 g/dL 6.4 - 8.4 08/31/2017 [facility] CHEM PANEL Albumin Lvl 3.3 g/dL 3.5 - 5.0 08/31/2017 [facility] CHEM PANEL ALT 16 unit/L 0 - 65 08/31/2017 [facility] CHEM PANEL AST 14 unit/L 0 - 37 08/31/2017 [facility] CHEM PANEL Creatinine Lvl 0.57 mg/dL 0.50 - 1.40 08/31/2017 [facility] CHEM PANEL Potassium Lvl 3.6 meq/L 3.5 - 5.1 08/31/2017 [facility] CHEM PANEL Chloride Lvl 104 meq/L 95 - 109 08/31/2017 [facility] CHEM PANEL BUN 11 mg/dL 7 - 22 08/31/2017 [facility] CHEM PANEL Glucose Lvl 80 mg/dL 70 - 99 08/31/2017 [facility] CHEM PANEL Sodium Lvl 134 meq/L 135 - 145 08/31/2017 [facility] CHEM PANEL Globulin 4.2 g/dL 2.7 - 4.2 08/31/2017 [facility] CHEM PANEL B/C Ratio 19 6 - 25 08/31/2017 [facility] CHEM PANEL AGAP 9.6 meq/L 10.0 - 20.0 08/31/2017 [facility] CHEM PANEL A/G Ratio 0.8 0.7 - 1.6 08/31/2017 [facility] [place] 65995 mIU/mL 08/31/2017 [facility] HEMATOLOGY Platelet 354 K/CMM 133 - 450 08/31/2017 [facility] HEMATOLOGY RDW 14.3 % 11.5 - 14.5 08/31/2017 [facility] HEMATOLOGY MCHC 33.5 g/dL 32.0 - 36.0 08/31/2017 [facility] HEMATOLOGY Hct 33.9 % 36.0 - 48.0 08/31/2017 [facility] HEMATOLOGY Hgb 11.3 g/dL 12.0 - 16.0 08/31/2017 [facility] HEMATOLOGY MPV 7.6 fL 7.4 - 10.4 08/31/2017 [facility] HEMATOLOGY MCV 81.7 fL 80.0 - 98.0 08/31/2017 [facility] HEMATOLOGY MCH 27.4 pg 27.0 - 31.0 08/31/2017 [facility] HEMATOLOGY RBC 4.14 M/CMM 4.20 - 5.40 08/31/2017 [facility] HEMATOLOGY WBC 11.8 K/CMM 3.7 - 10.4 08/31/2017 [facility] HEMATOLOGY Eosinophils # 0.2 K/CMM 0.0 - 0.5 08/31/2017 [facility] HEMATOLOGY Basophils 0.3 % 0.0 - 1.0 08/31/2017 [facility] HEMATOLOGY Segs-Bands # 7.6 K/CMM 1.5 - 8.1 08/31/2017 [facility] HEMATOLOGY Lymphocytes # 3.2 K/CMM 1.0 - 5.5 08/31/2017 [facility] HEMATOLOGY Monocytes # 0.6 K/CMM 0.0 - 0.8 08/31/2017 [facility] HEMATOLOGY Eosinophils 1.9 % 0.0 - 4.0 08/31/2017 [facility] HEMATOLOGY Lymphocytes 27.2 % 20.0 - 40.0 08/31/2017 [facility] HEMATOLOGY Monocytes 5.5 % 2.0 - 12.0 08/31/2017 [facility] HEMATOLOGY Segs 65.1 % 45.0 - 75.0 08/31/2017 [facility] URINE AND STOOL UA Urobilinogen <=1.0 mg/dL 0.1 - 1.0 08/31/2017 [facility] URINE AND STOOL UA Nitrite Negative (08/31/17 4:03 PM) Negative 08/31/2017 [facility] URINE AND STOOL UA Blood Negative (08/31/17 4:03 PM) Negative 08/31/2017 [facility] URINE AND STOOL UA WBC null 0 - 5 08/31/2017 [facility] URINE AND STOOL UA Sq Epi Moderate /LPF Few /LPF 08/31/2017 [facility] URINE AND STOOL UA Leuk Est Negative (08/31/17 4:03 PM) Negative 08/31/2017 [facility] URINE AND STOOL UA RBC 2 /HPF 0 - 2 08/31/2017 [facility] URINE AND STOOL UA Mucus Few /LPF None Seen /LPF 08/31/2017 [facility] URINE AND STOOL UA Turbidity Clear (08/31/17 4:03 PM) Clear 08/31/2017 [facility] URINE AND STOOL UA Spec Grav 1.019 <=1.030 08/31/2017 [facility] URINE AND STOOL UA Bili Negative *NA* (08/31/17 4:03 PM) Negative 08/31/2017 [facility] URINE AND STOOL UA Color Yellow *NA* (08/31/17 4:03 PM) Yellow 08/31/2017 [facility] URINE AND STOOL UA pH 6.0 5.0 - 8.0 08/31/2017 [facility] URINE AND STOOL UA Protein Negative mg/dL Negative mg/dL 08/31/2017 [facility] URINE AND STOOL UA Ketones Negative mg/dL Negative mg/dL 08/31/2017 [facility] URINE AND STOOL UA Glucose Negative mg/dL Negative mg/dL 08/31/2017 [facility] complete US complete US Study: complete US [...] normal and the cervix is competent. SL: [id number] 08/31/2017 - - Read by: Masha Velez MD Dictated Date/time: 08/31/17 17:32 Electronically Signed by: Masha Velez MD 08/31/17 17:36 FINAL REPORT [facility] Vital Signs Vital Sign Value Date Comments Source Respitory Rate 20 10/19/2017 [facility] Systolic (mm Hg) 110 10/19/2017 [facility] Diastolic (mm Hg) 79 10/19/2017 [facility] Temperature Oral (F) 98.3 F 10/19/2017 [facility] Systolic (mm Hg) 108 10/19/2017 [facility] Diastolic (mm Hg) 65 10/19/2017 [facility] Respitory Rate 16 10/19/2017 [facility] Systolic (mm Hg) 102 10/19/2017 [facility] Diastolic (mm Hg) 62 10/19/2017 [facility] Respitory Rate 18 10/19/2017 [facility] Temperature Oral (F) 97.8 F 10/19/2017 [facility] Weight 70.909 10/18/2017 [facility] Height 157.48 cm 10/18/2017 [facility] BMI Calculated 28.59 10/18/2017 [facility] Heart Rate 104 10/18/2017 [facility] Systolic (mm Hg) 118 08/31/2017 [facility] Diastolic (mm Hg) 80 08/31/2017 [facility] Temperature Oral (F) 98.3 F 08/31/2017 [facility] Heart Rate 90 08/31/2017 [facility] Respitory Rate 16 08/31/2017 [facility] Height 157.48 cm 08/31/2017 [facility] Weight 68.955 08/31/2017 [facility] BMI Calculated 27.8 08/31/2017 [facility] Encounters Location Location Details Encounter Type Encounter Number Reason For Visit Attending Provider ADM Date DC Date Status Source [facility] Emergency [id number] [id number] Moira Stewart 10/18/2017 10/19/2017 [facility] Dep[facility] Room [id number] MAMADOU SANDERS MD 04/13/2018 04/13/2018 [facility] Procedures Procedure Code Date Perfomer Comments Source
== END 2019-04-30 12:16 | disposition home or self-care (01) ==
LOC: ER 11:46
DX: S39.012A Strain of muscle, fascia and tendon of lower back, initial encounter (principal); X50.9XXA Other and unspecified overexertion or strenuous movements or postures, initial encounter; Y93.89 Activity, other specified; Z88.2 Allergy status to sulfonamides; Z91.018 Allergy to other foods; Z91.010 Allergy to peanuts
CPT/HCPCS: 99282

== ENCOUNTER 2019-05-23 21:18 | Emergency (ER) | payer OTHER ==
[~2019-05-23] VITALS: Ht 157.5 cm; Wt 68.0 kg
--- OUTSIDE RECORDS SUMMARY | 2019-05-23 21:21 | XMS REPORT | Continuity of Care Document ---
Author Author [employer] Address Unknown Phone Unavailable Care Team Providers Care Fitness Management Director Name Role Phone Glasses Direct Unavailable Unavailable Problems Problem Status Onset Date Classification Date Reported Comments Source Discharge Diagnosis: Cough 10/18/2017 10/21/2017 [facility] Discharge Diagnosis: Acute viral syndrome 10/18/2017 10/21/2017 [facility] 23 WEEKS , WEAKNESS, VOMITING Active 10/18/2017 [facility] Discharge Diagnosis: Rash 08/31/2017 09/03/2017 [facility] 16 WKS PREG;PAIN Active 08/31/2017 [facility] Chest wall pain Active Problem 04/13/2018 [facility] Medications Medication Details Route Status Patient Instructions Ordering Provider Order Date Source {21 (Methylprednisolone 4 MG Oral Tablet [Medrol]) } Pack [Medrol Dosepak] See Instructions, PO, Take by mouth as directed on label., # 1 Pack, 0 Refill(s) Active 10/19/2017 [facility] methylPREDNISolone SODium SUCCinate 125 mg, 2 mL, Route: IVP, Drug form: INJ, ONCE, Dosing Weight 70.909, kg, Priority: STAT, Start date: 10/18/17 19:24:00 MACHINIST MATE, Stop date: 10/18/17 19:24:00 CSTNotes: (Same as:Solu-MEDROL, A-Methapred) Inactive 10/19/2017 [facility] Albuterol 0.83 MG/ML Inhalant Solution 2.49 mg, 3 mL, Route: NEB, Drug form: SOLN, ONCE, Dosing Weight 70.909, kg, Priority: STAT, Start date: 10/18/17 16:25:00 MACHINIST MATE, Stop date: 10/18/17 16:25:00 CSTNotes: SEE RT DOCUMENTATION (Same as: Proventil) Inactive 10/18/2017 [facility] Saline Flush 0.9% 10 mL, Route: IVP, Drug Form: INJ, Dosing Weight 70.909, kg, PRN, PRN Line Flush, Start date: 10/18/17 16:25:00 MACHINIST MATE, Duration: 30 day, Stop date: 11/17/17 16:24:00 CSTNotes: Same as: BD Posiflush Sterile Inactive 10/18/2017 [facility] Sodium Chloride 0.9% (Bolus) IV 1,000 mL, 1000 ml/hr, Infuse Over: 1 hr, Route: IV, 1,000, Drug form: INJ, ONCE, Priority: STAT, Dosing Weight 70.909 kg, Start date: 10/18/17 16:25:00 MACHINIST MATE, Stop date: 10/18/17 16:25:00 MACHINIST MATE Inactive 10/18/2017 [facility] Clobetasol Propionate 0.5 MG/ML Topical Cream 1 appl, TOP, BID, X 14 day, # 15 gm, 0 Refill(s) Active 08/31/2017 [facility] Diphenhydramine 25 mg, 0.5 mL, Route: IVP, Drug form: INJ, ONCE, Dosing Weight 68.955, kg, Priority: STAT, Start date: 08/31/17 17:24:00 CDT, Stop date: 08/31/17 17:24:00 CDTNotes: (Same as: Benadryl) Inactive 08/31/2017 [facility] Diphenhydramine 25 mg, 0.5 mL, Route: IVP, Drug form: INJ, ONCE, Dosing Weight 68.955, kg, Priority: STAT, Start date: 08/31/17 15:34:00 CDT, Stop date: 08/31/17 15:34:00 CDTNotes: (Same as: Benadryl) Inactive 08/31/2017 [facility] Saline Flush 0.9% 10 mL, Route: IVP, Drug Form: INJ, Dosing Weight 68.955, kg, PRN, PRN Line Flush, Start date: 08/31/17 14:53:00 CDT, Duration: 30 day, Stop date: 09/30/17 13:52:00 CSTNotes: Same as: BD Posiflush Sterile Inactive 08/31/2017 [facility] Sodium Chloride 0.9% (Bolus) IV 1,000 mL, 1,000 ml/hr, Infuse Over: 1 hr, Route: IV, 1,000, Drug form: INJ, ONCE, Priority: STAT, Dosing Weight 68.955 kg, Start date: 08/31/17 14:53:00 CDT, Duration: 1 doses or times, Stop date: 08/31/17 14:53:00 CDT Inactive 08/31/2017 [facility] Doxycycline Hyclate 100 Mg Capsule, 100 Mg Oral Twice A Day Active 10/12/2016 [facility] Neomycin/Polymyxin B Sulf/Hc (Cortisporin Ear Solution) 10 Ml Solution, 4 Drop Left Ear Four Times Daily Active 10/12/2016 [facility] Salmeterol Xinafoate/Fluticasone (Advair 500/50*) 1 Ea Aerp, 1 Puff Inhalation Active 10/12/2016 [facility] Norethindrone A-E Estradiol (Loestrin) 1 Each Tablet, 1 Tab Oral Daily Active 12/25/2014 [facility] Albuterol Sulfate (Albuterol Sulfate Hfa) 8.5 Gm Hfa.aer.ad Every 4 Hours as needed for Shortness Of Breath Active [facility] Allergies, Adverse Reactions, Alerts Substance Category Reaction Severity Reaction type Status Date Reported Comments Source Sulfa (Sulfonamide Antibiotics) Unknown Allergy to Substance Active 10/12/2016 [facility] NUT Unknown Allergy to Substance Active 10/12/2016 [facility] PEANUTS Unknown Allergy to Substance Active 10/12/2016 [facility] Food Nuts Assertion Drug allergy Active [facility] sulfa drugs Assertion Drug allergy Active [facility] Immunizations No Data Provided for This Section Results Order Name Results Value Reference Range Date Interpretation Comments Source URINE AND STOOL UA Urobilinogen <=1.0 mg/dL 0.1 - 1.0 10/18/2017 [facility] URINE AND STOOL UA Spec Grav 1.017 <=1.030 10/18/2017 [facility] URINE AND STOOL UA Ketones Negative mg/dL Negative mg/dL 10/18/2017 [facility] URINE AND STOOL UA pH 6.5 5.0 - 8.0 10/18/2017 [facility] URINE AND STOOL UA Protein Negative mg/dL Negative mg/dL 10/18/2017 [facility] URINE AND STOOL UA WBC 3 0 - 5 10/18/2017 [facility] URINE AND STOOL UA Sq Epi Many /LPF Few /LPF 10/18/2017 [facility] URINE AND STOOL UA Bili Negative *NA* (10/18/17 5:15 PM) Negative 10/18/2017 [facility] URINE AND STOOL UA Mucus Few /LPF None Seen /LPF 10/18/2017 [facility] URINE AND STOOL UA RBC 1 0 - 2 10/18/2017 [facility] URINE AND STOOL UA Leuk Est Small *ABN* (10/18/17 5:15 PM) Negative 10/18/2017 [facility] URINE AND STOOL UA Nitrite Negative (10/18/17 5:15 PM) Negative 10/18/2017 [facility] URINE AND STOOL UA Blood Negative (10/18/17 5:15 PM) Negative 10/18/2017 [facility] URINE AND STOOL UA Glucose Negative mg/dL Negative mg/dL 10/18/2017 [facility] URINE AND STOOL UA Turbidity Clear (10/18/17 5:15 PM) Clear 10/18/2017 [facility] URINE AND STOOL UA Color Yellow *NA* (10/18/17 5:15 PM) Yellow 10/18/2017 [facility] CHEM PANEL eGFR 130 10/18/2017 Result Comment: The eGFR is calculated [...] should be multiplied [facility] the [facility] Creatinine Lvl 0.57 0.50 - 1.40 10/18/2017 [facility] CHEM PANEL Sodium Lvl 138 135 - 145 10/18/2017 [facility] CHEM PANEL Potassium Lvl 4.1 3.5 - 5.1 10/18/2017 [facility] CHEM PANEL Chloride Lvl 104 95 - 109 10/18/2017 [facility] CHEM PANEL CO2 26 24 - 32 10/18/2017 [facility] CHEM PANEL Glucose Lvl 87 70 - 99 10/18/2017 [facility] CHEM PANEL BUN 9 7 - 22 10/18/2017 [facility] CHEM PANEL Albumin Lvl 3.0 3.5 - 5.0 10/18/2017 [facility] CHEM PANEL Calcium Lvl 8.7 8.5 - 10.5 10/18/2017 [facility] CHEM PANEL Total Protein 7.3 6.4 - 8.4 10/18/2017 [facility] CHEM PANEL Bili Total 0.3 0.2 - 1.3 10/18/2017 [facility] CHEM PANEL AST 13 0 - 37 10/18/2017 [facility] CHEM PANEL Alk Phos 84 39 - 136 10/18/2017 [facility] CHEM PANEL ALT 15 0 - 65 10/18/2017 [facility] CHEM PANEL A/G Ratio 0.7 0.7 - 1.6 10/18/2017 [facility] CHEM PANEL B/C Ratio 16 6 - 25 10/18/2017 [facility] CHEM PANEL AGAP 12.1 10.0 - 20.0 10/18/2017 [facility] CHEM PANEL Globulin 4.3 2.7 - 4.2 10/18/2017 [facility] HEMATOLOGY Hct 31.8 36.0 - 48.0 10/18/2017 [facility] HEMATOLOGY MCV 83.2 80.0 - 98.0 10/18/2017 [facility] HEMATOLOGY MCH 27.7 27.0 - 31.0 10/18/2017 [facility] HEMATOLOGY Platelet 290 133 - 450 10/18/2017 [facility] HEMATOLOGY RDW 13.3 11.5 - 14.5 10/18/2017 [facility] HEMATOLOGY MCHC 33.3 32.0 - 36.0 10/18/2017 [facility] HEMATOLOGY MPV 7.8 7.4 - 10.4 10/18/2017 [facility] HEMATOLOGY Hgb 10.6 12.0 - 16.0 10/18/2017 [facility] HEMATOLOGY RBC 3.82 4.20 - 5.40 10/18/2017 [facility] HEMATOLOGY WBC 15.1 3.7 - 10.4 10/18/2017 [facility] HEMATOLOGY Monocytes # 0.9 0.0 - 0.8 10/18/2017 [facility] HEMATOLOGY Eosinophils # 2.1 0.0 - 0.5 10/18/2017 [facility] HEMATOLOGY Lymphocytes # 2.5 1.0 - 5.5 10/18/2017 [facility] HEMATOLOGY Segs 62.8 45.0 - 75.0 10/18/2017 [facility] HEMATOLOGY Lymphocytes 16.9 20.0 - 40.0 10/18/2017 [facility] HEMATOLOGY Eosinophils 13.8 0.0 - 4.0 10/18/2017 [facility] HEMATOLOGY Monocytes 6.2 2.0 - 12.0 10/18/2017 [facility] HEMATOLOGY Segs-Bands # 9.5 1.5 - 8.1 10/18/2017 [facility] HEMATOLOGY Basophils 0.3 0.0 - 1.0 10/18/2017 [facility] VIRAL - SEROLOGY Influ A Negative (10/18/17 4:34 PM) Negative 10/18/2017 [facility] VIRAL - SEROLOGY Influ B Negative (10/18/17 4:34 PM) Negative 10/18/2017 [facility] BLOOD BANK RESULTS ABO/Rh O POS 08/31/2017 [facility] CHEM PANEL eGFR 129 08/31/2017 Result Comment: The eGFR is calculated [...] should be multiplied by the estimated BMI. [facility] CHEM PANEL Bili Total 0.2 0.2 - 1.3 08/31/2017 [facility] CHEM PANEL Alk Phos 77 39 - 136 08/31/2017 [facility] CHEM PANEL CO2 24 24 - 32 08/31/2017 [facility] CHEM PANEL Calcium Lvl 9.0 8.5 - 10.5 08/31/2017 [facility] CHEM PANEL Total Protein 7.5 6.4 - 8.4 08/31/2017 [facility] CHEM PANEL Albumin Lvl 3.3 3.5 - 5.0 08/31/2017 [facility] CHEM PANEL ALT 16 0 - 65 08/31/2017 [facility] CHEM PANEL AST 14 0 - 37 08/31/2017 [facility] CHEM PANEL Creatinine Lvl 0.57 0.50 - 1.40 08/31/2017 [facility] CHEM PANEL Potassium Lvl 3.6 3.5 - 5.1 08/31/2017 [facility] CHEM PANEL Chloride Lvl 104 95 - 109 08/31/2017 [facility] CHEM PANEL BUN 11 7 - 22 08/31/2017 [facility] CHEM PANEL Glucose Lvl 80 70 - 99 08/31/2017 [facility] CHEM PANEL Sodium Lvl 134 135 - 145 08/31/2017 [facility] CHEM PANEL Globulin 4.2 2.7 - 4.2 08/31/2017 [facility] CHEM PANEL B/C Ratio 19 6 - 25 08/31/2017 [facility] CHEM PANEL AGAP 9.6 10.0 - 20.0 08/31/2017 [facility] CHEM PANEL A/G Ratio 0.8 0.7 - 1.6 08/31/2017 [facility] [place] [id number] 08/31/2017 [facility] HEMATOLOGY Platelet 354 133 - 450 08/31/2017 [facility] HEMATOLOGY RDW 14.3 11.5 - 14.5 08/31/2017 [facility] HEMATOLOGY MCHC 33.5 32.0 - 36.0 08/31/2017 [facility] HEMATOLOGY Hct 33.9 36.0 - 48.0 08/31/2017 [facility] HEMATOLOGY Hgb 11.3 12.0 - 16.0 08/31/2017 [facility] HEMATOLOGY MPV 7.6 7.4 - 10.4 08/31/2017 [facility] HEMATOLOGY MCV 81.7 80.0 - 98.0 08/31/2017 [facility] HEMATOLOGY MCH 27.4 27.0 - 31.0 08/31/2017 [facility] HEMATOLOGY RBC 4.14 4.20 - 5.40 08/31/2017 [facility] HEMATOLOGY WBC 11.8 3.7 - 10.4 08/31/2017 [facility] HEMATOLOGY Eosinophils # 0.2 0.0 - 0.5 08/31/2017 [facility] HEMATOLOGY Basophils 0.3 0.0 - 1.0 08/31/2017 [facility] HEMATOLOGY Segs-Bands # 7.6 1.5 - 8.1 08/31/2017 [facility] HEMATOLOGY Lymphocytes # 3.2 1.0 - 5.5 08/31/2017 [facility] HEMATOLOGY Monocytes # 0.6 0.0 - 0.8 08/31/2017 [facility] HEMATOLOGY Eosinophils 1.9 0.0 - 4.0 08/31/2017 [facility] HEMATOLOGY Lymphocytes 27.2 20.0 - 40.0 08/31/2017 [facility] HEMATOLOGY Monocytes 5.5 2.0 - 12.0 08/31/2017 [facility] HEMATOLOGY Segs 65.1 45.0 - 75.0 08/31/2017 [facility] URINE AND STOOL UA Urobilinogen <=1.0 mg/dL 0.1 - 1.0 08/31/2017 [facility] URINE AND STOOL UA Nitrite Negative (08/31/17 4:03 PM) Negative 08/31/2017 [facility] URINE AND STOOL UA Blood Negative (08/31/17 4:03 PM) Negative 08/31/2017 [facility] URINE AND STOOL UA WBC <1 0 - 5 08/31/2017 [facility] URINE AND STOOL UA Sq Epi Moderate /LPF Few /LPF 08/31/2017 [facility] URINE AND STOOL UA Leuk Est Negative (08/31/17 4:03 PM) Negative 08/31/2017 [facility] URINE AND STOOL UA RBC 2 0 - 2 08/31/2017 [facility] URINE AND STOOL UA Mucus Few /LPF None Seen /LPF 08/31/2017 [facility] URINE AND STOOL UA Turbidity Clear (08/31/17 4:03 PM) Clear 08/31/2017 [facility] URINE AND STOOL UA Spec Grav 1.019 <=1.030 08/31/2017 [facility] URINE AND STOOL UA Bili Negative *NA* (08/31/17 4:03 PM) Negative 08/31/2017 [facility] URINE AND STOOL UA Color Yellow *NA* (08/31/17 4:03 PM) Yellow 08/31/2017 [facility] URINE AND STOOL UA pH 6.0 5.0 - 8.0 08/31/2017 [facility] URINE AND STOOL UA Protein Negative mg/dL Negative mg/dL 08/31/2017 [facility] URINE AND STOOL UA Ketones Negative mg/dL Negative mg/dL 08/31/2017 [facility] URINE AND STOOL UA Glucose Negative mg/dL Negative mg/dL 08/31/2017 [facility] Pathology Reports No Data Provided for This Section Diagnostic Reports Report Value Date Source Chest 2 views DX Chest 2 views [...] acute abnormality is noted. SL: [id number] 10/18/2017 [facility] complete US Study: complete US 08/31/2017 2:53 [...] normal and the cervix is competent. SL: [id number] 08/31/2017 [facility] Consultation Notes No Data Provided for This Section Discharge Summaries No Data Provided for This Section History and Physicals No Data Provided for This Section Vital Signs Vital Sign Value Date Comments Source Respitory Rate 20 10/19/2017 [facility] Systolic (mm Hg) 110 10/19/2017 [facility] Diastolic (mm Hg) 79 10/19/2017 [facility] Temperature Oral (F) 98.3 F 10/19/2017 [facility] Systolic (mm Hg) 108 10/19/2017 [facility] Diastolic (mm Hg) 65 10/19/2017 [facility] Respitory Rate 16 10/19/2017 [facility] Systolic (mm Hg) 102 10/19/2017 [facility] Diastolic (mm Hg) 62 10/19/2017 [facility] Respitory Rate 18 10/19/2017 [facility] Temperature Oral (F) 97.8 F 10/19/2017 [facility] Weight 70.909 10/18/2017 [facility] Height 157.48 cm 10/18/2017 [facility] BMI Calculated 28.59 10/18/2017 [facility] Heart Rate 104 10/18/2017 [facility] Systolic (mm Hg) 118 08/31/2017 [facility] Diastolic (mm Hg) 80 08/31/2017 [facility] Temperature Oral (F) 98.3 F 08/31/2017 [facility] Heart Rate 90 08/31/2017 [facility] Respitory Rate 16 08/31/2017 [facility] Height 157.48 cm 08/31/2017 [facility] Weight 68.955 08/31/2017 [facility] BMI Calculated 27.8 08/31/2017 [facility] Encounters Location Location Details Encounter Type Encounter Number Reason For Visit Attending Provider ADM Date DC Date Status Source [facility] Emergency [id number] Willy Alegre 08/31/2017 08/31/2017 [facility] Emergency [id number] Moira Terry 10/18/2017 10/19/2017 [facility] Departed Emergency Room [id number] MAMADOU SANDERS MD 04/13/2018 04/13/2018 [facility] Procedures No Data Provided for This Section Assessment and Plan No Data Provided for This Section Plan of Care Plan of Care Date Source Discharge Date 04/13/18 4:55pm Disposition HOME, SELF-CARE Condition at Discharge Stable Instructions/Education Provided Eye Pain Forms Provided Work/School Excuse Prescriptions See Medication Section [facility]errals [facility] Address: [address] [place] [id number] Additional Instructions/Education FOLLOW UP WITH PRIMARY CARE DOCTOR. TAKE MEDICATION PRESCRIBED. NOTIFY PRIMARY CARE DOCTOR AND RETURN TO ER FOR ALTERED MENTAL STATUS, CHANGES IN VISION 04/13/2018 [facility] Social History Social History Date Source Smoking Status Start Date Stop Date Never Smoker 04/13/2018 [facility] Social History TypeResponse Smoking Status Never smoker; Type: Cigarettes; Ready to change: No; Concerns about tobacco use in household: No; Exposure to Tobacco Smoke None; Cigarette Smoking Last 365 Days Yes; Reg Smoking Cessation Counseling No 10/19/2017 [facility] Family History No Data Provided for This Section Advance Directives Order Name Results Value Date Source Advance Directives Advance Directives Directive Response Recorded Date/Time Does the patient have an advance directive? No 06/30/13 2:32pm If yes, is advance directive on file with [facility]? No 06/30/13 2:32pm If not on file with [facility] will patient provide a copy? No 06/30/13 2:32pm 04/13/2018 [facility] Functional Status No Data Provided for This Section
[2019-05-23] MEDS ORDERED: DEXAMETHASONE SOD PHOS 10 MG/1 ML VIAL ONE (21:42)
[2019-05-23] MEDS ORDERED: PENICILLIN G BENZATHINE LA 1.2 MU TBX ONE (21:42)
[2019-05-23] MEDS ORDERED: ACETAMINOPHEN 325 MG TAB ONE (21:44)
[2019-05-23] MEDS ORDERED: PENICILLIN G BENZATHINE LA 1.2 MU TBX IM STA (21:55)
[2019-05-23] MEDS ORDERED: ACETAMINOPHEN 325 MG TAB PO ONE (22:00)
[2019-05-23] MEDS ORDERED: DEXAMETHASONE SOD PHOS 10 MG/1 ML VIAL IV ONE (22:00)
== END 2019-05-23 22:40 | disposition home or self-care (01) ==
LOC: ER 21:18
DX: J02.0 Streptococcal pharyngitis (principal)
CPT/HCPCS: 96372; 99282; J0561; J1100